=== PATIENT | female | born 1940 | race Caucasian/White ===

== ENCOUNTER → 2023-09-15 09:53 | Outpatient (REF) | payer MEDICARE, BC, SELFPAY ==
[2023-09-15 11:46] LABS: % Basophils 0.8 % (0-2); % Eosinophils 2.7 % (0-6); % Lymphocytes 14.1 % (20.5-51.1); % Monocytes 13.9 % (1.7-9.3); % Neutrophils 67.5 % (42.2-75.2); Absolute Eosinophils 0.1 10^3/uL (0-0.7); Absolute Immature Granulocytes 0.1 10^3/uL (0-0.05); Absolute Lymphocytes 0.7 10^3/uL (1.2-3.4); Absolute Monocytes 0.7 10^3/uL (0.1-0.6); Absolute Neutrophils 3.5 10^3/uL (1.4-6.5); Hematocrit 35.9 % (37.0-47.0); Hemoglobin 11.3 g/dL (12.0-16.0); Mean Corp Hgb Conc. 31.5 g/dL (33.0-37.0); Mean Corpuscular Hgb 30.6 pg (27.0-31.0); Mean Corpuscular Volume 97.3 fL (81.0-99.0); Nucleated Red Blood Cells % 0 %; Red Blood Cell Count 3.69 10^6/uL (4.20-5.40); White Blood Cell Count 5.2 10^3/uL (4.8-10.8)
[2023-09-15 12:12] LABS: ALT (SGPT) 12 U/L (0-35); AST (SGOT) 32 U/L (14-36); Albumin 3.8 g/dl (3.5-5.0); Alkaline Phosphatase 136 U/L (38-126); Blood Urea Nitrogen 35 mg/dl (7-17); Calcium 11.1 mg/dl (8.4-10.2); Carbon Dioxide 31 mmol/L (22-30); Chloride 94 mmol/L (98-107); Glucose 102 mg/dl (70-99); Potassium 2.7 mmol/L (3.5-5.1); Sodium 138 mmol/L (135-145); Total Bilirubin 5.1 mg/dl (0.2-1.3); Total Protein 6.3 g/dl (6.3-8.2); eGFR 44.64
[2023-09-15 12:29] LABS: Mean Platelet Volume 11.3 fL (7.4-10.4); Platelet Count 82 10^3/uL (130-400)
== END ==
LOC: OLABPATH 09:53
PROVIDERS: ATTENDING PHYSICIAN Internal Medicine
DX: I10 Essential (primary) hypertension (principal); I48.91 Unspecified atrial fibrillation; N39.0 Urinary tract infection, site not specified
CPT/HCPCS: 36415; 80053; 85025

== ENCOUNTER → 2023-09-16 09:43 | Outpatient (REF) | payer MEDICARE, BC, SELFPAY ==
[2023-09-16 11:01] LABS: Blood Urea Nitrogen 35 mg/dl (7-17); Carbon Dioxide 31 mmol/L (22-30); Chloride 96 mmol/L (98-107); Glucose 112 mg/dl (70-99); Magnesium 1.8 mg/dl (1.6-2.3); Sodium 139 mmol/L (135-145); eGFR 44.64
== END ==
LOC: OLABPATH 09:43
PROVIDERS: ATTENDING PHYSICIAN Internal Medicine
DX: I10 Essential (primary) hypertension (principal); I48.91 Unspecified atrial fibrillation; N39.0 Urinary tract infection, site not specified
CPT/HCPCS: 36415; 80048; 83735

== ENCOUNTER → 2023-09-17 12:13 | Outpatient (REF) | payer MEDICARE, BC, SELFPAY ==
[2023-09-17 14:10] LABS: Urine Albumin Trace (Neg - Trace); Urine Bilirubin Negative (Negative); Urine Character Clear (Clear); Urine Color Yellow; Urine Glucose Negative (Negative); Urine Ketone Negative (Negative); Urine Leukocyte Trace (Negative); Urine Nitrite Negative (Negative); Urine Occult Blood Negative (Negative); Urine Urobilinogen 3+ (Neg - 1+)
[2023-09-17 14:24] LABS: Blood Urea Nitrogen 34 mg/dl (7-17); Calcium 10.9 mg/dl (8.4-10.2); Carbon Dioxide 33 mmol/L (22-30); Chloride 95 mmol/L (98-107); Glucose 102 mg/dl (70-99); Potassium 2.7 mmol/L (3.5-5.1); Sodium 138 mmol/L (135-145); eGFR 40.55
[2023-09-17 15:15] LABS: Urine Amorphous Seen; Urine Mucus Few
[2023-09-17 15:16] LABS: Urine Hyaline Cast >15 /LPF (0-2)
[2023-09-17 15:17] LABS: Urine Red Blood Cell 0-2 /HPF (0-2); Urine White Cell 0-2 /HPF (0-5)
== END ==
LOC: OLABPATH 12:13
PROVIDERS: ATTENDING PHYSICIAN Internal Medicine
DX: I10 Essential (primary) hypertension (principal); I48.91 Unspecified atrial fibrillation; N39.0 Urinary tract infection, site not specified
CPT/HCPCS: 36415; 80048; 81003; 81015

== ENCOUNTER → 2023-09-20 12:00 | Outpatient (REF) | payer MEDICARE, BC, SELFPAY ==
[2023-09-20 13:22] LABS: Blood Urea Nitrogen 34 mg/dl (7-17); Calcium 10.8 mg/dl (8.4-10.2); Carbon Dioxide 30 mmol/L (22-30); Chloride 95 mmol/L (98-107); Glucose 103 mg/dl (70-99); Potassium 2.9 mmol/L (3.5-5.1); Sodium 138 mmol/L (135-145); eGFR 34.15
== END ==
LOC: OLABPATH 12:00
PROVIDERS: ATTENDING PHYSICIAN Internal Medicine
DX: R60.1 Generalized edema (principal)
CPT/HCPCS: 36415; 80048

== ENCOUNTER → 2023-09-21 14:00 | Outpatient (REF) | payer MEDICARE, BC, SELFPAY ==
[2023-09-21 15:48] LABS: ALT (SGPT) 15 U/L (0-35); AST (SGOT) 25 U/L (14-36); Albumin 3.7 g/dl (3.5-5.0); Alkaline Phosphatase 126 U/L (38-126); Blood Urea Nitrogen 35 mg/dl (7-17); Calcium 10.7 mg/dl (8.4-10.2); Carbon Dioxide 36 mmol/L (22-30); Chloride 93 mmol/L (98-107); Glucose 108 mg/dl (70-99); Sodium 137 mmol/L (135-145); Total Bilirubin 4.6 mg/dl (0.2-1.3); Total Protein 6.2 g/dl (6.3-8.2); eGFR 31.61
[2023-09-21 16:04] LABS: Vitamin D, 25-OH*** 69.1 ng/mL (30-80)
== END ==
LOC: OLABPATH 14:00
PROVIDERS: ATTENDING PHYSICIAN Internal Medicine
DX: E55.9 Vitamin D deficiency, unspecified (principal); R60.1 Generalized edema; E21.5 Disorder of parathyroid gland, unspecified
CPT/HCPCS: 36415; 80053; 82306; 83970

== ENCOUNTER → 2023-09-23 16:46 | Outpatient (REF) | payer MEDICARE, BC, SELFPAY ==
[2023-09-23 19:33] LABS: % Eosinophils 5.6 % (0-6); % Immature Granulocytes 0.2 % (0-0.5); % Lymphocytes 18.4 % (20.5-51.1); % Monocytes 15.9 % (1.7-9.3); % Neutrophils 58.9 % (42.2-75.2); Absolute Eosinophils 0.2 10^3/uL (0-0.7); Absolute Lymphocytes 0.8 10^3/uL (1.2-3.4); Absolute Monocytes 0.7 10^3/uL (0.1-0.6); Absolute Neutrophils 2.4 10^3/uL (1.4-6.5); Hematocrit 37.6 % (37.0-47.0); Hemoglobin 11.3 g/dL (12.0-16.0); Mean Corp Hgb Conc. 30.1 g/dL (33.0-37.0); Mean Corpuscular Hgb 30.5 pg (27.0-31.0); Mean Corpuscular Volume 101.6 fL (81.0-99.0); Mean Platelet Volume 12.5 fL (7.4-10.4); Nucleated Red Blood Cells % 0 %; Platelet Count 88 10^3/uL (130-400); Red Cell Dist. Width 15.8 % (11.5-14.5); White Blood Cell Count 4.1 10^3/uL (4.8-10.8)
== END ==
LOC: OLABPATH 16:46
PROVIDERS: ATTENDING PHYSICIAN Internal Medicine
DX: R60.1 Generalized edema (principal)
CPT/HCPCS: 85025

== ENCOUNTER → 2023-09-25 11:41 | Outpatient (REF) | payer MEDICARE, BC, SELFPAY ==
[2023-09-25 12:48] LABS: Blood Urea Nitrogen 35 mg/dl (7-17); Calcium 10.3 mg/dl (8.4-10.2); Carbon Dioxide 30 mmol/L (22-30); Chloride 96 mmol/L (98-107); Glucose 109 mg/dl (70-99); Potassium 3.7 mmol/L (3.5-5.1); Sodium 136 mmol/L (135-145); eGFR 31.61
== END ==
LOC: OLABPATH 11:41
PROVIDERS: ATTENDING PHYSICIAN Internal Medicine
DX: I10 Essential (primary) hypertension (principal)
CPT/HCPCS: 36415; 80048

== ENCOUNTER → 2023-10-04 09:21 | Outpatient (REF) | payer MEDICARE, BC, SELFPAY ==
[2023-10-04 11:42] LABS: Blood Urea Nitrogen 34 mg/dl (7-17); Calcium 11.1 mg/dl (8.4-10.2); Carbon Dioxide 29 mmol/L (22-30); Chloride 95 mmol/L (98-107); Glucose 95 mg/dl (70-99); Potassium 2.9 mmol/L (3.5-5.1); Sodium 136 mmol/L (135-145)
== END ==
LOC: OLABPATH 09:21
PROVIDERS: ATTENDING PHYSICIAN Internal Medicine
DX: R60.1 Generalized edema (principal)
CPT/HCPCS: 36415; 80048

== ENCOUNTER → 2023-10-06 09:58 | Outpatient (REF) | payer MEDICARE, BC, SELFPAY ==
[2023-10-06 10:53] LABS: Blood Urea Nitrogen 31 mg/dl (7-17); Calcium 10.9 mg/dl (8.4-10.2); Carbon Dioxide 30 mmol/L (22-30); Chloride 93 mmol/L (98-107); Glucose 99 mg/dl (70-99); Magnesium 1.7 mg/dl (1.6-2.3); Potassium 2.9 mmol/L (3.5-5.1); Sodium 136 mmol/L (135-145); eGFR 40.55
== END ==
LOC: OLABPATH 09:58
PROVIDERS: ATTENDING PHYSICIAN Internal Medicine
DX: R60.1 Generalized edema (principal)
CPT/HCPCS: 36415; 80048; 83735

== ENCOUNTER → 2023-10-11 10:58 | Outpatient (REF) | payer MEDICARE, BC, SELFPAY ==
[2023-10-11 12:21] LABS: Blood Urea Nitrogen 32 mg/dl (7-17); Calcium 9.8 mg/dl (8.4-10.2); Carbon Dioxide 33 mmol/L (22-30); Chloride 93 mmol/L (98-107); Glucose 107 mg/dl (70-99); Potassium 2.5 mmol/L (3.5-5.1); Sodium 135 mmol/L (135-145)
== END ==
LOC: OLABPATH 10:58
PROVIDERS: ATTENDING PHYSICIAN Internal Medicine
DX: R60.1 Generalized edema (principal)
CPT/HCPCS: 36415; 80048

== ENCOUNTER → 2023-10-12 11:37 | Outpatient (REF) | payer MEDICARE, BC, SELFPAY ==
[2023-10-12 13:55] LABS: Blood Urea Nitrogen 33 mg/dl (7-17); Calcium 10.8 mg/dl (8.4-10.2); Carbon Dioxide 31 mmol/L (22-30); Chloride 91 mmol/L (98-107); Glucose 104 mg/dl (70-99); Magnesium 1.8 mg/dl (1.6-2.3); Potassium 3.2 mmol/L (3.5-5.1); Sodium 135 mmol/L (135-145)
== END ==
LOC: OLABPATH 11:37
PROVIDERS: ATTENDING PHYSICIAN Internal Medicine
DX: I10 Essential (primary) hypertension (principal); R60.1 Generalized edema
CPT/HCPCS: 36415; 80048; 83735

== ENCOUNTER → 2023-11-01 11:27 | Outpatient (REF) | payer MEDICARE, BC, SELFPAY ==
[2023-11-01 12:13] LABS: % Basophils 0.6 % (0-2); % Eosinophils 2.5 % (0-6); % Immature Granulocytes 0.5 % (0-0.5); % Lymphocytes 9.5 % (20.5-51.1); % Monocytes 10.3 % (1.7-9.3); % Neutrophils 76.6 % (42.2-75.2); Absolute Eosinophils 0.2 10^3/uL (0-0.7); Absolute Lymphocytes 0.6 10^3/uL (1.2-3.4); Absolute Monocytes 0.7 10^3/uL (0.1-0.6); Absolute Neutrophils 4.8 10^3/uL (1.4-6.5); Hemoglobin 8.6 g/dL (12.0-16.0); Mean Corp Hgb Conc. 30.7 g/dL (33.0-37.0); Mean Corpuscular Hgb 30.3 pg (27.0-31.0); Mean Corpuscular Volume 98.6 fL (81.0-99.0); Mean Platelet Volume 12.7 fL (7.4-10.4); Nucleated Red Blood Cells % 0 %; Platelet Count 70 10^3/uL (130-400); Red Blood Cell Count 2.84 10^6/uL (4.20-5.40); White Blood Cell Count 6.3 10^3/uL (4.8-10.8)
[2023-11-01 12:27] LABS: ALT (SGPT) 15 U/L (0-35); AST (SGOT) 25 U/L (14-36); Albumin 3.2 g/dl (3.5-5.0); Alkaline Phosphatase 154 U/L (38-126); Blood Urea Nitrogen 33 mg/dl (7-17); Calcium 10.3 mg/dl (8.4-10.2); Carbon Dioxide 26 mmol/L (22-30); Chloride 99 mmol/L (98-107); Glucose 86 mg/dl (70-99); Sodium 133 mmol/L (135-145); Total Bilirubin 6.7 mg/dl (0.2-1.3); Total Protein 5.4 g/dl (6.3-8.2); eGFR 40.55
== END ==
LOC: OLABPATH 11:27
PROVIDERS: ATTENDING PHYSICIAN Internal Medicine
DX: R60.1 Generalized edema (principal)
CPT/HCPCS: 36415; 80053; 85025

== ENCOUNTER → 2023-11-08 10:41 | Outpatient (REF) | payer MEDICARE, BC, SELFPAY ==
[2023-11-08 11:45] LABS: % Eosinophils 6.5 % (0-6); % Immature Granulocytes 0.6 % (0-0.5); % Lymphocytes 10.1 % (20.5-51.1); % Monocytes 11.8 % (1.7-9.3); Absolute Basophils 0.1 10^3/uL (0-0.2); Absolute Eosinophils 0.3 10^3/uL (0-0.7); Absolute Lymphocytes 0.5 10^3/uL (1.2-3.4); Absolute Monocytes 0.6 10^3/uL (0.1-0.6); Absolute Neutrophils 3.7 10^3/uL (1.4-6.5); Hematocrit 28.4 % (37.0-47.0); Hemoglobin 8.5 g/dL (12.0-16.0); Mean Corp Hgb Conc. 29.9 g/dL (33.0-37.0); Mean Corpuscular Volume 100.4 fL (81.0-99.0); Mean Platelet Volume 12.2 fL (7.4-10.4); Nucleated Red Blood Cells % 0 %; Platelet Count 94 10^3/uL (130-400); Red Blood Cell Count 2.83 10^6/uL (4.20-5.40); Red Cell Dist. Width 18.3 % (11.5-14.5); White Blood Cell Count 5.2 10^3/uL (4.8-10.8)
[2023-11-08 11:48] LABS: Blood Urea Nitrogen 22 mg/dl (7-17); Calcium 10.5 mg/dl (8.4-10.2); Carbon Dioxide 21 mmol/L (22-30); Chloride 105 mmol/L (98-107); Glucose 84 mg/dl (70-99); Potassium 5.4 mmol/L (3.5-5.1); Sodium 133 mmol/L (135-145); eGFR 49.55
== END ==
LOC: OLABPATH 10:41
PROVIDERS: ATTENDING PHYSICIAN Internal Medicine
DX: R60.1 Generalized edema (principal)
CPT/HCPCS: 36415; 80048; 85025

== ENCOUNTER → 2023-11-15 12:49 | Outpatient (REF) | payer MEDICARE, BC, SELFPAY ==
[2023-11-15 14:43] LABS: Blood Urea Nitrogen 21 mg/dl (7-17); Calcium 9.5 mg/dl (8.4-10.2); Carbon Dioxide 24 mmol/L (22-30); Chloride 102 mmol/L (98-107); Glucose 98 mg/dl (70-99); Potassium 3.8 mmol/L (3.5-5.1); Sodium 132 mmol/L (135-145); eGFR 44.64
== END ==
LOC: OLABPATH 12:49
PROVIDERS: ATTENDING PHYSICIAN Internal Medicine
DX: R60.1 Generalized edema (principal)
CPT/HCPCS: 80048

== ENCOUNTER → 2023-11-22 13:49 | Outpatient (REF) | payer MEDICARE, BC, SELFPAY ==
[2023-11-22 14:43] LABS: ALT (SGPT) 14 U/L (0-35); AST (SGOT) 19 U/L (14-36); Albumin 2.8 g/dl (3.5-5.0); Alkaline Phosphatase 174 U/L (38-126); Iron 177 ug/dl (37-170); LDH 416 U/L (120-246); Total Bilirubin 3.4 mg/dl (0.2-1.3); Total Protein 4.9 g/dl (6.3-8.2)
[2023-11-22 14:48] LABS: % Basophils 0.6 % (0-2); % Eosinophils 1.4 % (0-6); % Immature Granulocytes 0.5 % (0-0.5); % Lymphocytes 7.4 % (20.5-51.1); % Monocytes 11.2 % (1.7-9.3); % Neutrophils 78.9 % (42.2-75.2); Absolute Eosinophils 0.1 10^3/uL (0-0.7); Absolute Lymphocytes 0.5 10^3/uL (1.2-3.4); Absolute Monocytes 0.7 10^3/uL (0.1-0.6); Absolute Neutrophils 4.9 10^3/uL (1.4-6.5); Hematocrit 28.9 % (37.0-47.0); Hemoglobin 8.8 g/dL (12.0-16.0); Mean Corp Hgb Conc. 30.4 g/dL (33.0-37.0); Mean Corpuscular Hgb 31.4 pg (27.0-31.0); Mean Corpuscular Volume 103.2 fL (81.0-99.0); Mean Platelet Volume 11.3 fL (7.4-10.4); Nucleated Red Blood Cells % 0 %; Platelet Count 85 10^3/uL (130-400); Red Cell Dist. Width 16.4 % (11.5-14.5); White Blood Cell Count 6.2 10^3/uL (4.8-10.8)
[2023-11-22 14:52] LABS: Percent Saturation 58 % (20-50); Total Iron Binding Capacity 302 ug/dl (265-497)
[2023-11-22 15:18] LABS: Ferritin 53.8 ng/ml (11.1-264.0)
[2023-11-23 10:49] LABS: Blood Urea Nitrogen 23 mg/dl (7-17); Calcium 9.9 mg/dl (8.4-10.2); Carbon Dioxide 23 mmol/L (22-30); Chloride 99 mmol/L (98-107); Glucose 79 mg/dl (70-99); Sodium 130 mmol/L (135-145); eGFR 49.55
[2023-11-24 19:59] LABS: Haptoglobin <10 mg/dL (30-200)
== END ==
LOC: OLABPATH 13:49
PROVIDERS: ATTENDING PHYSICIAN Internal Medicine Hematology & Oncology; FAMILY PHYSICIAN Internal Medicine
DX: R60.1 Generalized edema (principal); D64.9 Anemia, unspecified; D69.6 Thrombocytopenia, unspecified
CPT/HCPCS: 80053; 80076; 82248; 82728; 83010; 83540; 83550; 83615; 83735; 85025; 86880